=== PATIENT | male | born 1970 | race American Indian/Alaskan Native ===

== ENCOUNTER 2019-05-05 20:01 | Inpatient (IN) | payer MEDICARE ==
[2019-05-05] MEDS ORDERED: SODIUM CHLORIDE 0.9% 1000 ML 1,000 ML IV ONE (20:36)
[2019-05-05] MEDS ORDERED: NALOXONE 2 MG/2 ML INJ IV ONE (20:37)
--- NOTE | 2019-05-05 20:41 | Emergency Department Report ---
ED Altered Mental Status HPI - General Chief Complaint: Altered Mental Status Stated Complaint: AMS Time Seen by Provider: 05/05/19 20:33 Source: family Mode of arrival: Ambulatory Limitations: Altered Mental Status - History of Present Illness Initial Comments: Patient is a 48-year-old male who presents emergency room with complaints of altered mental status and decreased responsiveness. Patient brought in by by his girlfriend. Girlfriend states he's been like this for 2 days. girlfriend states the patient has not been waking up. girlfriend states patient has a history of drug use. MD Complaint: altered mental status, confusion, decreased responsiveness -: Sudden Severity: severe Context: drug abuse, other - Related Data Previous Rx's Medication Instructions Recorded Last Taken Type risperiDONE [RisperDAL] 0.5 mg PO BID #60 tablet 05/09/19 Unknown Rx Allergies Allergy/AdvReac Type Severity Reaction Status Date / Time No Known Allergies Allergy Verified 03/04/18 03:58 ED Review of Systems ROS: Stated complaint: AMS Other details as noted in HPI Nonobvious in room 15 Comment: Unobtainable due to pts medical conditions ED Past Medical Hx - Past Medical History Previous Medical History?: Yes Hx Hypertension: Yes Hx Psychiatric Treatment: Yes - Surgical History Past Surgical History?: No - Family History Family history: no significant - Social History Smoking Status: Current Every Day Smoker Substance Use Type: Alcohol, Cocaine, Marijuana, Prescribed, Methamphetamines - Medications Home Medications: Home Medications Medication Instructions Recorded Confirmed Last Taken Type risperiDONE [RisperDAL] 0.5 mg PO BID #60 tablet 05/09/19 Unknown Rx ED Physical Exam - General Limitations: Altered Mental Status General appearance: obtunded - Head Head exam: Present: atraumatic, normocephalic - Eye Eye exam: Present: normal appearance, PERRL Pupils: Present: normal accommodation - ENT ENT exam: Present: mucous membranes dry - Neck Neck exam: Present: normal inspection - Respiratory Respiratory exam: Present: normal lung sounds bilaterally. Absent: respiratory distress, wheezes, rales - Cardiovascular Cardiovascular Exam: Present: regular rate, normal rhythm. Absent: systolic murmur, diastolic murmur, rubs, gallop - GI/Abdominal GI/Abdominal exam: Present: soft, normal bowel sounds. Absent: distended, tenderness, guarding - Rectal Rectal exam: Present: deferred - Extremities Exam Extremities exam: Present: normal inspection - Back Exam Back exam: Present: normal inspection - Neurological Exam Neurological exam: Present: altered - Expanded Neurological Exam Expanded Best Eye Response ([place]): (2) open to pain Best Motor Response ([place]): (5) localizes to pain Best Verbal Response ([place]): (2) incomprehsible sounds [place] Total: 9 - Skin Skin exam: Present: warm, dry, intact, normal color. Absent: rash - Assessment Assessment Interval: Baseline - Level of Consciousness 1a. Level of Consciousness: resp stimuli/obtunded - LOC Questions 1b. LOC Questions: answers no questions correctly - LOC Command 1c. LOC Commands: performs no tasks correctly - Best Gaze 2. Best Gaze: normal - Visual 3. Visual: no visual loss - Facial Palsy 4. Facial Palsy: normal symmetrical movement - Motor Arm 5a. Motor Arm Left: some gravity effort 5b. Motor Arm Right: some gravity effort - Motor Leg 6a. Motor Leg Left: some gravity effort 6b. Motor Leg Right: some gravity effort - Limb Ataxia 7. Limb Ataxia: absent - Sensory 8. Sensory: normal - Best Language 9. Best Language: coma/unresponsive - Dysarthria 10. Dysarthria: intubated or other barrier - Extinction and Inattention 11. Extinction/Inattention: no abnormality - Scoring Total Score: 17 Stroke Severity: Moderate to Severe Stroke ED Course Vital Signs 05/05/19 05/05/19 05/05/19 20:04 20:30 20:45 Temperature 98 F Pulse Rate 104 H 94 H 109 H Respiratory 18 17 18 Rate Blood Pressure 134/80 114/79 Blood Pressure 132/87 [Left] O2 Sat by Pulse 92 98 99 Oximetry 05/05/19 05/05/19 05/05/19 21:00 21:30 22:00 Temperature Pulse Rate 86 86 93 H Respiratory 19 15 18 Rate Blood Pressure 121/79 133/74 119/76 Blood Pressure [Left] O2 Sat by Pulse 96 94 92 Oximetry 05/05/19 05/05/19 05/05/19 22:17 22:30 23:00 Temperature Pulse Rate 93 H 82 88 Respiratory 12 14 14 Rate Blood Pressure 145/86 145/80 119/65 Blood Pressure [Left] O2 Sat by Pulse 93 95 95 Oximetry 05/05/19 05/06/19 05/06/19 23:30 00:00 01:00 Temperature Pulse Rate 107 H 82 82 Respiratory 11 L 17 14 Rate Blood Pressure 107/74 118/66 110/62 Blood Pressure [Left] O2 Sat by Pulse 94 97 94 Oximetry 05/06/19 05/06/19 05/06/19 01:30 02:00 02:30 Temperature Pulse Rate 72 72 62 Respiratory 15 14 15 Rate Blood Pressure 101/59 109/64 111/76 Blood Pressure [Left] O2 Sat by Pulse 95 100 93 Oximetry 05/06/19 05/06/19 05/06/19 03:00 03:30 04:00 Temperature Pulse Rate 87 66 71 Respiratory 15 13 13 Rate Blood Pressure 109/70 119/71 102/60 Blood Pressure [Left] O2 Sat by Pulse 96 95 93 Oximetry 05/06/19 05/06/19 05/06/19 04:30 05:00 05:30 Temperature Pulse Rate 82 84 88 Respiratory 15 15 11 L Rate Blood Pressure 127/87 134/77 125/75 Blood Pressure [Left] O2 Sat by Pulse 98 96 97 Oximetry 05/06/19 05/06/19 05/06/19 06:00 06:30 07:00 Temperature Pulse Rate 72 70 67 Respiratory 13 14 16 Rate Blood Pressure 116/63 118/60 123/79 Blood Pressure [Left] O2 Sat by Pulse 93 100 97 Oximetry 05/06/19 05/06/19 05/06/19 08:00 08:28 09:00 Temperature Pulse Rate 81 61 106 H Respiratory 12 16 17 Rate Blood Pressure 123/62 123/62 Blood Pressure 125/63 [Left] O2 Sat by Pulse 95 95 96 Oximetry 05/06/19 05/06/19 05/06/19 10:00 11:00 11:56 Temperature Pulse Rate 63 98 H 93 H Respiratory 16 15 16 Rate Blood Pressure 107/64 125/70 Blood Pressure 138/81 [Left] O2 Sat by Pulse 97 92 99 Oximetry 05/06/19 05/06/19 05/06/19 13:36 14:49 15:29 Temperature 99.7 F H Pulse Rate 82 75 Respiratory 16 18 Rate Blood Pressure Blood Pressure 184/76 166/84 144/87 [Left] O2 Sat by Pulse 97 98 Oximetry 05/06/19 05/06/19 05/06/19 18:58 19:30 23:30 Temperature Pulse Rate 64 70 74 Respiratory 16 15 13 Rate Blood Pressure Blood Pressure 133/60 148/79 140/91 [Left] O2 Sat by Pulse 98 97 97 Oximetry 05/07/19 05/07/19 05/08/19 03:46 14:05 01:53 Temperature 99.0 F 99.2 F Pulse Rate 59 L 77 80 Respiratory 16 18 16 Rate Blood Pressure Blood Pressure 152/84 127/82 136/85 [Left] O2 Sat by Pulse 96 98 95 Oximetry 05/08/19 05/08/19 05/08/19 02:00 07:00 20:15 Temperature 98.1 F 98.0 F Pulse Rate 106 H 89 Respiratory 22 22 18 Rate Blood Pressure Blood Pressure 124/86 130/70 [Left] O2 Sat by Pulse 95 95 96 Oximetry 05/09/19 05/09/19 05/09/19 01:42 07:59 14:46 Temperature 97.4 F L 98.9 F 98.3 F Pulse Rate 93 H 89 92 H Respiratory 18 18 18 Rate Blood Pressure Blood Pressure 114/73 132/76 150/95 [Left] O2 Sat by Pulse 95 98 98 Oximetry 05/09/19 05/10/19 05/10/19 20:37 01:45 07:56 Temperature 98.6 F 98.6 F 98.0 F Pulse Rate 82 77 83 Respiratory 20 20 20 Rate Blood Pressure Blood Pressure 146/87 118/70 109/71 [Left] O2 Sat by Pulse 95 99 96 Oximetry 05/10/19 05/10/19 14:43 21:01 Temperature 98.5 F 97.7 F Pulse Rate 91 H 74 Respiratory 18 18 Rate Blood Pressure Blood Pressure 117/75 137/89 [Left] O2 Sat by Pulse 94 96 Oximetry - Reevaluation(s) Reevaluation #1: Patient is not answering questions but Patient is more awake. 05/05/19 20:47 Reevaluation #2: Patient is acutely agitated. Patient unable to be still for CT scan. Patient continues to get out of bed and move. Patient will be given Geodon so that we can probably evaluate the patient. 05/05/19 21:26 Reevaluation #3: Patient is still sleeping. 05/06/19 01:14 Reevaluation #4: Patient is still resting in room. Since the patient is unable to explain the intentions of his overdose, the patient was placed on ER hold and have a mental health evaluation. Patient is medically cleared with the final disposition will come from psych. 05/06/19 03:03 Reevaluation #5: The nurse asked me to look at the patient. Patient is still in the ER from May 05. Patient was signed out to oncoming physician and wasn't ER hold for psych evaluation. Psych has cleared the patient from a psychiatric standpoint and patient is waiting on medical clearance. I examined the patient the patient is minimally responsive. Patient does not respond to pain. Patient does not open his eyes. Patient does not follow commands. I will do a head CT and some basic labs. 05/10/19 19:26 Patient's labs done and did not show any abnormalities. Patient given IV fluids since patient has not taken any food in. I will reconsult mental health. 05/10/19 22:58 Due to the patient's decreased responsiveness, the patient will be admitted to the hospitalist service. Patient's labs were repeated. 05/11/19 03:05 - Consultations Consultation #1: Hospitalist was consulted for admission. Hospitalist admit patient. 05/11/19 03:05 - Lab Data Result diagrams: 05/10/19 19:22 05/10/19 19:22 Lab Results 05/05/19 05/05/19 05/05/19 Range/Units 20:52 20:52 20:52 WBC 14.9 H (4.5-11.0) K/mm3 RBC 5.82 H (3.65-5.03) M/mm3 Hgb 18.2 H (11.8-15.2) gm/dl Hct 53.3 H (35.5-45.6) % MCV 92 (84-94) fl MCH 31 (28-32) pg MCHC 34 (32-34) % RDW 14.5 (13.2-15.2) % Plt Count 415 (140-440) K/mm3 Lymph % (Auto) 29.6 (13.4-35.0) % [place] % (Auto) 8.3 H (0.0-7.3) % Eos % (Auto) 1.3 (0.0-4.3) % Baso % (Auto) 1.3 (0.0-1.8) % Lymph # 4.4 (1.2-5.4) K/mm3 [place] # 1.2 H (0.0-0.8) K/mm3 Eos # 0.2 (0.0-0.4) K/mm3 Baso # 0.2 H (0.0-0.1) K/mm3 Seg Neutrophils % 59.5 (40.0-70.0) % Seg Neutrophils # 8.9 H (1.8-7.7) K/mm3 VBG pH (7.320-7.420) Sodium 139 (137-145) mmol/L Potassium 3.9 (3.6-5.0) mmol/L Chloride 99.8 (98-107) mmol/L Carbon Dioxide 23 (22-30) mmol/L Anion Gap 20 mmol/L BUN 20 (9-20) mg/dL Creatinine 0.9 (0.8-1.5) mg/dL Estimated GFR > 60 ml/min BUN/Creatinine Ratio 22 % Glucose 88 (75-100) mg/dL Lactic Acid 1.90 (0.7-2.0) mmol/L Calcium 10.1 (8.4-10.2) mg/dL Total Bilirubin 0.60 (0.1-1.2) mg/dL AST 20 (5-40) units/L ALT 18 (7-56) units/L Alkaline Phosphatase 135 H (35-129) units/L Ammonia (25-60) umol/L Total Creatine Kinase 38 L (55-170) units/L Total Protein 8.3 H (6.3-8.2) g/dL Albumin 4.3 (3.9-5) g/dL Albumin/Globulin Ratio 1.1 % Urine Color (Yellow) Urine Turbidity (Clear) Urine pH (5.0-7.0) Ur Specific [place] (1.003-1.030) Urine Protein (Negative) mg/dL Urine Glucose (UA) (Negative) mg/dL Urine Ketones (Negative) mg/dL Urine Blood (Negative) Urine Nitrite (Negative) Urine Bilirubin (Negative) Urine Urobilinogen (<2.0) mg/dL Ur Leukocyte Esterase (Negative) Urine WBC (Auto) (0.0-6.0) /HPF Urine RBC (Auto) (0.0-6.0) /HPF U Epithel Cells (Auto) (0-13.0) /HPF Urine Mucus /HPF Salicylates (2.8-20.0) mg/dL Urine Opiates Screen Urine Methadone Screen Acetaminophen (10.0-30.0) ug/mL Ur Barbiturates Screen Ur Phencyclidine Scrn Ur Amphetamines Screen U Benzodiazepines Scrn Urine Cocaine Screen U Marijuana (THC) Screen Drugs of Abuse Note Plasma/Serum Alcohol (0-0.07) % 05/05/19 05/05/19 05/05/19 Range/Units 20:52 20:52 20:52 WBC (4.5-11.0) K/mm3 RBC (3.65-5.03) M/mm3 Hgb (11.8-15.2) gm/dl Hct (35.5-45.6) % MCV (84-94) fl MCH (28-32) pg MCHC (32-34) % RDW (13.2-15.2) % Plt Count (140-440) K/mm3 Lymph % (Auto) (13.4-35.0) % [place] % (Auto) (0.0-7.3) % Eos % (Auto) (0.0-4.3) % Baso % (Auto) (0.0-1.8) % Lymph # (1.2-5.4) K/mm3 [place] # (0.0-0.8) K/mm3 Eos # (0.0-0.4) K/mm3 Baso # (0.0-0.1) K/mm3 Seg Neutrophils % (40.0-70.0) % Seg Neutrophils # (1.8-7.7) K/mm3 VBG pH (7.320-7.420) Sodium (137-145) mmol/L Potassium (3.6-5.0) mmol/L Chloride (98-107) mmol/L Carbon Dioxide (22-30) mmol/L Anion Gap mmol/L BUN (9-20) mg/dL Creatinine (0.8-1.5) mg/dL Estimated GFR ml/min BUN/Creatinine Ratio % Glucose (75-100) mg/dL Lactic Acid (0.7-2.0) mmol/L Calcium (8.4-10.2) mg/dL Total Bilirubin (0.1-1.2) mg/dL AST (5-40) units/L ALT (7-56) units/L Alkaline Phosphatase (35-129) units/L Ammonia 59.0 (25-60) umol/L Total Creatine Kinase (55-170) units/L Total Protein (6.3-8.2) g/dL Albumin (3.9-5) g/dL Albumin/Globulin Ratio % Urine Color (Yellow) Urine Turbidity (Clear) Urine pH (5.0-7.0) Ur Specific [place] (1.003-1.030) Urine Protein (Negative) mg/dL Urine Glucose (UA) (Negative) mg/dL Urine Ketones (Negative) mg/dL Urine Blood (Negative) Urine Nitrite (Negative) Urine Bilirubin (Negative) Urine Urobilinogen (<2.0) mg/dL Ur Leukocyte Esterase (Negative) Urine WBC (Auto) (0.0-6.0) /HPF Urine RBC (Auto) (0.0-6.0) /HPF U Epithel Cells (Auto) (0-13.0) /HPF Urine Mucus /HPF Salicylates < 0.3 L (2.8-20.0) mg/dL Urine Opiates Screen Urine Methadone Screen Acetaminophen < 5.0 L (10.0-30.0) ug/mL Ur Barbiturates Screen Ur Phencyclidine Scrn Ur Amphetamines Screen U Benzodiazepines Scrn Urine Cocaine Screen U Marijuana (THC) Screen Drugs of Abuse Note Plasma/Serum Alcohol (0-0.07) % 05/05/19 05/05/19 05/05/19 Range/Units 20:52 23:49 23:49 WBC (4.5-11.0) K/mm3 RBC (3.65-5.03) M/mm3 Hgb (11.8-15.2) gm/dl Hct (35.5-45.6) % MCV (84-94) fl MCH (28-32) pg MCHC (32-34) % RDW (13.2-15.2) % Plt Count (140-440) K/mm3 Lymph % (Auto) (13.4-35.0) % [place] % (Auto) (0.0-7.3) % Eos % (Auto) (0.0-4.3) % Baso % (Auto) (0.0-1.8) % Lymph # (1.2-5.4) K/mm3 [place] # (0.0-0.8) K/mm3 Eos # (0.0-0.4) K/mm3 Baso # (0.0-0.1) K/mm3 Seg Neutrophils % (40.0-70.0) % Seg Neutrophils # (1.8-7.7) K/mm3 VBG pH (7.320-7.420) Sodium (137-145) mmol/L Potassium (3.6-5.0) mmol/L Chloride (98-107) mmol/L Carbon Dioxide (22-30) mmol/L Anion Gap mmol/L BUN (9-20) mg/dL Creatinine (0.8-1.5) mg/dL Estimated GFR ml/min BUN/Creatinine Ratio % Glucose (75-100) mg/dL Lactic Acid (0.7-2.0) mmol/L Calcium (8.4-10.2) mg/dL Total Bilirubin (0.1-1.2) mg/dL AST (5-40) units/L ALT (7-56) units/L Alkaline Phosphatase (35-129) units/L Ammonia (25-60) umol/L Total Creatine Kinase (55-170) units/L Total Protein (6.3-8.2) g/dL Albumin (3.9-5) g/dL Albumin/Globulin Ratio % Urine Color [place] (Yellow) Urine Turbidity Clear (Clear) Urine pH 6.0 (5.0-7.0) Ur Specific [place] 1.029 (1.003-1.030) Urine Protein 30 mg/dl (Negative) mg/dL Urine Glucose (UA) Neg (Negative) mg/dL Urine Ketones 80 (Negative) mg/dL Urine Blood Neg (Negative) Urine Nitrite Neg (Negative) Urine Bilirubin Neg (Negative) Urine Urobilinogen 4.0 (<2.0) mg/dL Ur Leukocyte Esterase Neg (Negative) Urine WBC (Auto) 2.0 (0.0-6.0) /HPF Urine RBC (Auto) 3.0 (0.0-6.0) /HPF U Epithel Cells (Auto) 1.0 (0-13.0) /HPF Urine Mucus 3+ /HPF Salicylates (2.8-20.0) mg/dL Urine Opiates Screen Presumptive negative Urine Methadone Screen Presumptive negative Acetaminophen (10.0-30.0) ug/mL Ur Barbiturates Screen Presumptive negative Ur Phencyclidine Scrn Presumptive negative Ur Amphetamines Screen Presumptive positive U Benzodiazepines Scrn Presumptive negative Urine Cocaine Screen Presumptive negative U Marijuana (THC) Screen Presumptive positive Drugs of Abuse Note Disclamer Plasma/Serum Alcohol < 0.01 (0-0.07) % 05/09/19 05/10/19 05/10/19 Range/Units 20:04 19:22 19:22 WBC 13.1 H (4.5-11.0) K/mm3 RBC 5.65 H (3.65-5.03) M/mm3 Hgb 18.4 H (11.8-15.2) gm/dl Hct 51.0 H (35.5-45.6) % MCV 90 (84-94) fl MCH 33 H (28-32) pg MCHC 36 H (32-34) % RDW 14.1 (13.2-15.2) % Plt Count 347 (140-440) K/mm3 Lymph % (Auto) 20.3 (13.4-35.0) % [place] % (Auto) 10.1 H (0.0-7.3) % Eos % (Auto) 0.9 (0.0-4.3) % Baso % (Auto) 0.8 (0.0-1.8) % Lymph # 2.7 (1.2-5.4) K/mm3 [place] # 1.3 H (0.0-0.8) K/mm3 Eos # 0.1 (0.0-0.4) K/mm3 Baso # 0.1 (0.0-0.1) K/mm3 Seg Neutrophils % 67.9 (40.0-70.0) % Seg Neutrophils # 8.9 H (1.8-7.7) K/mm3 VBG pH (7.320-7.420) Sodium 139 140 (137-145) mmol/L Potassium 4.0 4.0 (3.6-5.0) mmol/L Chloride 100.4 100.2 (98-107) mmol/L Carbon Dioxide 18 L 16 L (22-30) mmol/L Anion Gap 25 28 mmol/L BUN 18 19 (9-20) mg/dL Creatinine 0.7 L 0.7 L (0.8-1.5) mg/dL Estimated GFR > 60 > 60 ml/min BUN/Creatinine Ratio 26 27 % Glucose 79 87 (75-100) mg/dL Lactic Acid (0.7-2.0) mmol/L Calcium 9.8 10.1 (8.4-10.2) mg/dL Total Bilirubin 0.40 0.40 (0.1-1.2) mg/dL AST 15 15 (5-40) units/L ALT 12 13 (7-56) units/L Alkaline Phosphatase 123 128 (35-129) units/L Ammonia (25-60) umol/L Total Creatine Kinase 36 L (55-170) units/L Total Protein 8.0 8.1 (6.3-8.2) g/dL Albumin 4.0 4.1 (3.9-5) g/dL Albumin/Globulin Ratio 1.0 1.0 % Urine Color (Yellow) Urine Turbidity (Clear) Urine pH (5.0-7.0) Ur Specific [place] (1.003-1.030) Urine Protein (Negative) mg/dL Urine Glucose (UA) (Negative) mg/dL Urine Ketones (Negative) mg/dL Urine Blood (Negative) Urine Nitrite (Negative) Urine Bilirubin (Negative) Urine Urobilinogen (<2.0) mg/dL Ur Leukocyte Esterase (Negative) Urine WBC (Auto) (0.0-6.0) /HPF Urine RBC (Auto) (0.0-6.0) /HPF U Epithel Cells (Auto) (0-13.0) /HPF Urine Mucus /HPF Salicylates (2.8-20.0) mg/dL Urine Opiates Screen Urine Methadone Screen Acetaminophen (10.0-30.0) ug/mL Ur Barbiturates Screen Ur Phencyclidine Scrn Ur Amphetamines Screen U Benzodiazepines Scrn Urine Cocaine Screen U Marijuana (THC) Screen Drugs of Abuse Note Plasma/Serum Alcohol (0-0.07) % 05/10/19 05/11/19 Range/Units 21:51 02:23 WBC (4.5-11.0) K/mm3 RBC (3.65-5.03) M/mm3 Hgb (11.8-15.2) gm/dl Hct (35.5-45.6) % MCV (84-94) fl MCH (28-32) pg MCHC (32-34) % RDW (13.2-15.2) % Plt Count (140-440) K/mm3 Lymph % (Auto) (13.4-35.0) % [place] % (Auto) (0.0-7.3) % Eos % (Auto) (0.0-4.3) % Baso % (Auto) (0.0-1.8) % Lymph # (1.2-5.4) K/mm3 [place] # (0.0-0.8) K/mm3 Eos # (0.0-0.4) K/mm3 Baso # (0.0-0.1) K/mm3 Seg Neutrophils % (40.0-70.0) % Seg Neutrophils # (1.8-7.7) K/mm3 VBG pH 7.372 (7.320-7.420) Sodium (137-145) mmol/L Potassium (3.6-5.0) mmol/L Chloride (98-107) mmol/L Carbon Dioxide (22-30) mmol/L Anion Gap mmol/L BUN (9-20) mg/dL Creatinine (0.8-1.5) mg/dL Estimated GFR ml/min BUN/Creatinine Ratio % Glucose (75-100) mg/dL Lactic Acid (0.7-2.0) mmol/L Calcium (8.4-10.2) mg/dL Total Bilirubin (0.1-1.2) mg/dL AST (5-40) units/L ALT (7-56) units/L Alkaline Phosphatase (35-129) units/L Ammonia 44.0 (25-60) umol/L Total Creatine Kinase (55-170) units/L Total Protein (6.3-8.2) g/dL Albumin (3.9-5) g/dL Albumin/Globulin Ratio % Urine Color (Yellow) Urine Turbidity (Clear) Urine pH (5.0-7.0) Ur Specific [place] (1.003-1.030) Urine Protein (Negative) mg/dL Urine Glucose (UA) (Negative) mg/dL Urine Ketones (Negative) mg/dL Urine Blood (Negative) Urine Nitrite (Negative) Urine Bilirubin (Negative) Urine Urobilinogen (<2.0) mg/dL Ur Leukocyte Esterase (Negative) Urine WBC (Auto) (0.0-6.0) /HPF Urine RBC (Auto) (0.0-6.0) /HPF U Epithel Cells (Auto) (0-13.0) /HPF Urine Mucus /HPF Salicylates (2.8-20.0) mg/dL Urine Opiates Screen Urine Methadone Screen Acetaminophen (10.0-30.0) ug/mL Ur Barbiturates Screen Ur Phencyclidine Scrn Ur Amphetamines Screen U Benzodiazepines Scrn Urine Cocaine Screen U Marijuana (THC) Screen Drugs of Abuse Note Plasma/Serum Alcohol (0-0.07) % - EKG Data -: EKG Interpreted by [facility] EKG shows normal: sinus rhythm, axis, intervals, QRS complexes, ST-T waves Rate: normal - Radiology Data Radiology results: report reviewed CHEST 1 VIEW 05/05/2019 9:04 PM INDICATION / CLINICAL INFORMATION: Altered Mental Status. COMPARISON: Chest x-ray 03/04/2018 FINDINGS: SUPPORT DEVICES: None. HEART / MEDIASTINUM: Upper limits normal in size for AP technique. LUNGS / PLEURA: No significant pulmonary or pleural abnormality. No pneumothorax. ADDITIONAL FINDINGS: Multiple old healed left rib fractures and left mid clavicular fracture. Moderate degenerative changes left shoulder, unchanged. IMPRESSION: 1. No acute findings. CT HEAD WITHOUT CONTRAST INDICATION: Altered Mental Status TECHNIQUE: Axial slices were obtained through the head. Coronal and sagittal reformatted images were obtained. COMPARISON: CT scan dated 03/05/2018 FINDINGS: There is no intracranial hemorrhage or extra-axial fluid collection. Ventricles, basilar cisterns, and sulci appear within normal limits for age. There is no mass lesion or midline shift. No acute territorial infarct is identified. Embolization coils are again noted on the right. There is increased density in the intracranial vessels diffusely. This is not specific but could indicate dehydration. Bone windows demonstrate no acute osseous abnormality. There is mucosal thickening in the left aspect of the frontal sinus and in several ethmoid air cells. TECHNIQUE: All CT scans at this facility use dose modulation, iterative reconstruction, automated exposure control, weight based dosing, when appropriate, to reduce radiation dose to as low as reasonably achievable. IMPRESSION: 1. No acute intracranial abnormality. - Medical Decision Making Patient is a 48-year-old male that presents to the emergency room with possible overdose and altered mental status. Patient became agitated while in the ER and order to fully evaluate patient patient needs to be given Geodon. Patient improved with Geodon. Patient had a head CT was negative for acute findings. Patient had a chest x-ray was negative for acute findings. Patient's labs unremarkable except for UDS positive for amphetamines and marijuana. Patient is medically cleared however the final disposition will come from our psych team. Patient placed on an ER hold.. - Differential Diagnosis overdose, altered mental status, dehydration. Critical Care Time: Yes Critical care time in (mins) excluding proc time.: 80 Critical care attestation.: If time is entered above; I have spent that time in minutes in the direct care of this critically ill patient, excluding procedure time. Critical Care Time: 80 MINUTES ED Disposition Clinical Impression: Drug abuse, Unresponsive episode, Acidosis, Dehydration Altered mental state Qualifiers: Altered mental status type: unspecified Qualified Code(s): R41.82 - Altered mental status, unspecified Overdose Qualifiers: Encounter type: initial encounter Injury intent: accidental or unintentional Qualified Code(s): T50.901A - Poisoning by unspecified drugs, medicaments and biological substances, accidental (unintentional), initial encounter Disposition: DC-09 OP ADMIT IP TO THIS HOSP Is pt being admited?: Yes Does the pt Need Aspirin: No Condition: Critical Prescriptions: risperiDONE [RisperDAL] 0.5 mg PO BID #60 tablet Time of Disposition: 02:01
[2019-05-05] MEDS ORDERED: ONDANSETRON 4 MG/2 ML INJ IV ONE (20:49)
[2019-05-05 21:03] LABS: Basophils # (Auto) 0.2 K/mm3 (0.0-0.1); Basophils % (Auto) 1.3 % (0.0-1.8); Eosinophils # (Auto) 0.2 K/mm3 (0.0-0.4); Eosinophils % (Auto) 1.3 % (0.0-4.3); Hematocrit 53.3 % (35.5-45.6); Hemoglobin 18.2 gm/dl (11.8-15.2); Lymphocytes # (Auto) 4.4 K/mm3 (1.2-5.4); Lymphocytes % (Auto) 29.6 % (13.4-35.0); Mean Corpuscular HGB Conc 34 % (32-34); Mean Corpuscular Volume 92 fl (84-94); Monocytes # (Auto) 1.2 K/mm3 (0.0-0.8); Monocytes % (Auto) 8.3 % (0.0-7.3); Platelet Count 415 K/mm3 (140-440); Red Blood Count 5.82 M/mm3 (3.65-5.03); Red Cell Distribution Width 14.5 % (13.2-15.2)
[2019-05-05] MEDS ORDERED: ZIPRASIDONE MESYLATE 20 MG VIAL IM ONE (21:11)
[2019-05-05] MEDS ORDERED: WATER FOR INJ Sterile (PF) 10 ML IM STA (21:16)
[2019-05-05] MEDS ORDERED: WATER FOR INJ Sterile (PF) 10 ML ONE (21:16)
[2019-05-05 21:18] LABS: Alanine Aminotransferase 18 units/L (7-56); Albumin 4.3 g/dL (3.9-5); BUN/Creatinine Ratio 22; Blood Urea Nitrogen 20 mg/dL (9-20); Calcium 10.1 mg/dL (8.4-10.2); Hemolysis Index 2
--- NOTE | 2019-05-05 21:49 | XRay Report ---
CHEST 1 VIEW 05/05/2019 9:04 PM INDICATION / CLINICAL INFORMATION: Altered Mental Status. COMPARISON: Chest x-ray 03/04/2018 FINDINGS: SUPPORT DEVICES: None. HEART / MEDIASTINUM: Upper limits normal in size for AP technique. LUNGS / PLEURA: No significant pulmonary or pleural abnormality. No pneumothorax. ADDITIONAL FINDINGS: Multiple old healed left rib fractures and left mid clavicular fracture. Moderat e degenerative changes left shoulder, unchanged. IMPRESSION: 1. No acute findings. Signer Name: Rah Rico MD Signed: 05/05/2019 9:44 PM Workstation Name: [id number]
--- NOTE | 2019-05-05 23:06 | Cat Scan Report ---
CT HEAD WITHOUT CONTRAST INDICATION: Altered Mental Status TECHNIQUE: Axial slices were obtained through the head. Coronal and sagittal reformatted images were obtained. COMPARISON: CT scan dated 03/05/2018 FINDINGS: There is no intracranial hemorrhage or extra-axial fluid collection. Ventricles, basilar cisterns, an d sulci appear within normal limits for age. There is no mass lesion or midline shift. No acute justin torial infarct is identified. Embolization coils are again noted on the right. There is increased density in the intracranial vessels diffusely. This is not specific but could [place] rl dehydration. Bone windows demonstrate no acute osseous abnormality. There is mucosal thickening in the left aspect of the frontal sinus and in several ethmoid air cells. TECHNIQUE: All CT scans at this facility use dose modulation, iterative reconstruction, automated ex posure control, weight based dosing, when appropriate, to reduce radiation dose to as low as reasonab ly achievable. IMPRESSION: 1. No acute intracranial abnormality. Signer Name: Abilio Huang MD Signed: 05/05/2019 11:02 PM Workstation Name: [id number]
[2019-05-06 00:10] LABS: Benzodiazepines Screen,Urine PRESUMPTIVE NEGATIVE; Bilirubin,Urine NEG (Negative); Blood,Urine NEG (Negative); Cocaine Screen,Urine PRESUMPTIVE NEGATIVE; Color,Urine Amber (Yellow); Methadone Screen,Urine PRESUMPTIVE NEGATIVE; Mucus,Urine 3+ /HPF; Opiate Screen,Urine PRESUMPTIVE NEGATIVE
[2019-05-06 00:37] LABS: Amphetamine Screen,Urine PRESUMPTIVE POSITIVE; Cannabinoid Screen,Urine PRESUMPTIVE POSITIVE
[2019-05-06] MEDS ORDERED: SODIUM CHLORIDE 0.9% 1000 ML 1,000 ML IV ONE (01:20)
--- NOTE | 2019-05-07 14:24 | Consultation ---
History of Present Illness - Reason for Consult Consult date: 05/07/19 Reason for consult: assess and manage mental health - Chief Complaint Chief complaint: unable to assess. pt refused to speak - History of Present Psychiatric Illness Terrell Marshall is a 48 year old male patient who was brought to the ER for AMS by girlfriend according to the medical record. The patient is lying in bed. Dressed appropriately. Appears asleep. His eyebrows raise as I enter the room and call his name. He does not open his eyes or respond to vigorous tactile stimuli. Spoke with the nurse caring for the patient, she says the patient has done this since he's been here, and that his girlfriend says he ignores people purposely. Re-entered the room to try and engage the person in an interview. Assessed radial pulse, 3+ palpated. The pateint never opened his eyes and turned his head toward the wall. PAST PSYCHIATRIC HISTORY: Unable to assess PAST MEDICAL HISTORY: Unable to assess Family Psychiatric History Unable to assess SOCIAL HISTORY Unable to assess REVIEW OF SYSTEMS Unable to assess MSE Appearance: Asleep. Dressed appropriately. Unable to assess rest of MSE Assessment: Altered Mental Status Drug Induced Mood Disorder Plan Risperidone 0.5mg po BID Geodon 10mg IM q4h agitation Medical: Per primary Disposition: The patient meets the requirement for acute inpatient psychiatric treatment at this time. Transfer to an acute psychiatric facility once medically cleared. Will reassess the patient's status tomorrow once he is able or willing to speak, will reconsider disposition at that time. Will continue to follow until transferred. Please call with any questions or concerns. Thank you for this consult. Medications and Allergies Allergies Allergy/AdvReac Type Severity Reaction Status Date / Time No Known Allergies Allergy Verified 03/04/18 03:58 Mental Status Exam - Vital signs Last Vital Signs Temp 99.0 F 05/07/19 14:05 Pulse 77 05/07/19 14:05 Resp 18 05/07/19 14:05 BP 127/82 05/07/19 14:05 Pulse Ox 98 05/07/19 14:05 Results Result Diagrams: 05/05/19 20:52 05/05/19 20:52 All other labs normal.
[2019-05-07] MEDS ORDERED: ZIPRASIDONE MESYLATE 20 MG VIAL IM PRN (14:38)
[2019-05-07] MEDS: risperiDONE 0.25 MG TAB PO SCH (16:26)
[2019-05-08] MEDS: risperiDONE 0.25 MG TAB PO SCH ×3 (01:50→22:12)
--- NOTE | 2019-05-08 11:03 | Progress Note ---
Subjective - Reason for Consult Consult date: 05/08/19 Reason for consult: altered mental status - Chief Complaint Chief complaint: Reviewed the patient's medical record and discussed with the nursing staff the patient's progress. The nurse note states the patient is resting and will not respond to staff verbally. Vitals stable and no distress noted. Reports rcvd patient is not a 1013 and was unable to assess him today. Family reported to nurse patient does this sometimes and just will not speak to them. Nurse notes also says patient repositions himself on stretcher but will not open his eyes. I attempted to interview the patient today, he is disrobed, wearing a diaper only. He is asleep on his stomach with his head turned toward the wall. The patient hand moves as I'm entering the room. Upon calling the patient's name, his eyes flinched. He did not speak or acknowledge my present. MSE Unable to assess rest of MSE Assessment: Altered Mental Status Drug Induced Mood Disorder Plan Lorazepam 2mg IM x 1 to see if patient responds Medical: Per primary Disposition: The patient meets the requirement for acute inpatient psychiatric treatment at this time. Transfer to an acute psychiatric facility once medically cleared. Will do the Lorazepam challenge to assist in ruling out catatonia. If not transferred, will reassess disposition tomorrow. Please call with any questions or concerns. Thank you for this consult. Mental Status Exam - Vital signs Last Vital Signs Temp 98.1 F 05/08/19 07:00 Pulse 106 H 05/08/19 07:00 Resp 22 05/08/19 07:00 BP 124/86 05/08/19 07:00 Pulse Ox 95 05/08/19 07:00
[2019-05-08] MEDS ORDERED: LORazepam 2 MG/ML VIAL IM ONE (11:27)
[2019-05-08] MEDS ORDERED: SODIUM CHLORIDE 0.9% 1000 ML 1,000 ML IV ONE (12:02)
[2019-05-09] MEDS: risperiDONE 0.25 MG TAB PO SCH ×2 (10:49→22:25)
--- NOTE | 2019-05-09 11:26 | Progress Note ---
Subjective - Reason for Consult Consult date: 05/09/19 Reason for consult: Altered mental status - Chief Complaint Chief complaint: Reviewed the patient's medical record and discussed with the nursing staff the patient's progress. The nurse caring for the patient states the patient has not been participating in interaction during assessment. She says he doesn't respond to questioning or touch, but when she mentioned to him his girlfriend called, he blinked his eyes. She also says he has been moving around and repositioning himself when no-one is looking. I attempted to interview the patient today, he is disrobed, wearing a diaper only. He is asleep on his stomach. The patient does not respond to my voice or tactle stimulation. As I'm leaving the room, I look back and he moves his hand. The nurse led me to the monitor. I then observed the patient moving about on the stretcher, repositioning and straightening his linen over him. MSE Unable to assess rest of MSE Assessment: Altered Mental Status Drug Induced Mood Disorder Plan Discontinue 1013 No scripts given Medical: Per primary Disposition: The patient does not meet the requirement for acute inpatient psy chiatric treatment at this time. The patient can be discharged once medically cleared. Dr Alonzo informed and agrees with plan. The patient is to follow up with outpatient psych or primary care in 7 to 10 days. Will sign off. Thank you for this consult. Mental Status Exam - Vital signs Last Vital Signs Temp 98.9 F 05/09/19 07:59 Pulse 89 05/09/19 07:59 Resp 18 05/09/19 07:59 BP 132/76 05/09/19 07:59 Pulse Ox 98 05/09/19 07:59
[2019-05-09] MEDS ORDERED: AMMONIA INHALANT IH ONE ×2 (11:44→11:48)
[2019-05-09 20:47] LABS: Alanine Aminotransferase 12 units/L (7-56); BUN/Creatinine Ratio 26; Blood Urea Nitrogen 18 mg/dL (9-20); Calcium 9.8 mg/dL (8.4-10.2); Hemolysis Index 6
[2019-05-10] MEDS: risperiDONE 0.25 MG TAB PO SCH (14:39)
[2019-05-10 19:37] LABS: Basophils # (Auto) 0.1 K/mm3 (0.0-0.1); Basophils % (Auto) 0.8 % (0.0-1.8); Eosinophils # (Auto) 0.1 K/mm3 (0.0-0.4); Eosinophils % (Auto) 0.9 % (0.0-4.3); Hemoglobin 18.4 gm/dl (11.8-15.2); Lymphocytes # (Auto) 2.7 K/mm3 (1.2-5.4); Lymphocytes % (Auto) 20.3 % (13.4-35.0); Mean Corpuscular HGB Conc 36 % (32-34); Mean Corpuscular Volume 90 fl (84-94); Monocytes # (Auto) 1.3 K/mm3 (0.0-0.8); Monocytes % (Auto) 10.1 % (0.0-7.3); Platelet Count 347 K/mm3 (140-440); Red Blood Count 5.65 M/mm3 (3.65-5.03); Red Cell Distribution Width 14.1 % (13.2-15.2)
[2019-05-10 20:29] LABS: Alanine Aminotransferase 13 units/L (7-56); Albumin 4.1 g/dL (3.9-5); BUN/Creatinine Ratio 27; Blood Urea Nitrogen 19 mg/dL (9-20); Calcium 10.1 mg/dL (8.4-10.2); Hemolysis Index 16
--- NOTE | 2019-05-10 21:15 | Cat Scan Report ---
CT head/brain wo con INDICATION / CLINICAL INFORMATION: 48 years Male; ams, unresponsive. TECHNIQUE: Routine CT head without contrast. All CT scans at this location are performed using CT dos e reduction for ALARA by means of automated exposure control. COMPARISON: 03/05/2018 FINDINGS: BRAIN / INTRACRANIAL CONTENTS: Aneurysm coiling seen in the suprasellar cistern/cavernous sinus regio n on the right, resulting in significant streak artifact. Similar findings seen on prior. High attenuation seen in the vessels-would question if the patient has received contrast earlier toda y. High oxygenation level might also be a consideration. Otherwise, no acute hemorrhage, mass effect, midline shift, hydrocephalus, or acute, large territoria l infarct. No chronic infarct or atrophy appreciated. No significant white matter abnormality. CRANIOCERVICAL JUNCTION: No significant abnormality. ORBITS: No significant abnormality of visualized orbits. SINUSES / MASTOIDS: Mild to moderate opacification of the mastoid seen on the right. There is also mu cosal thickening in the right middle ear cavity. I do not see the middle ear ossicles on the right, a nd clinical correlation is recommended. ADDITIONAL FINDINGS: None. IMPRESSION: 1. No focal mass, hemorrhage, hydrocephalus, or acute, large territorial infarct. Signer Name: Tom Gold MD, III Signed: 05/10/2019 9:11 PM Workstation Name: [id number]
[2019-05-10] MEDS ORDERED: SODIUM CHLORIDE 0.9% 1000 ML 1,000 ML IV ONE (22:23)
[2019-05-10] MEDS ORDERED: LORazepam 2 MG/ML VIAL IV ONE (22:53)
[2019-05-11] MEDS: risperiDONE 0.25 MG TAB PO SCH (00:40)
[2019-05-11] MEDS ORDERED: SODIUM CHLORIDE 0.9% 1000 ML 1,000 ML IV ONE ×2 (01:23→01:24)
[2019-05-11] MEDS ORDERED: LORazepam 2 MG/ML VIAL ONE (02:49)
[2019-05-11] MEDS ORDERED: LORazepam 2 MG/ML VIAL IV ONE (03:01)
[2019-05-11] MEDS ORDERED: NALOXONE 0.4 MG/1 ML INJ IV ONE ×2 (03:22→03:24)
[2019-05-11] MEDS ORDERED: NALOXONE 2 MG/2 ML INJ ONE (03:23)
[2019-05-11] MEDS ORDERED: AMMONIA INHALANT IH ONE ×2 (03:27→04:05)
[2019-05-11] MEDS ORDERED: ACETAMINOPHEN 325 MG TAB PO PRN (04:00)
[2019-05-11] MEDS ORDERED: ONDANSETRON 4 MG/2 ML INJ IV PRN (04:00)
--- NOTE | 2019-05-11 04:09 | History and Physical Report ---
History of Present Illness History of present illness: 48-year-old man with a history of substance abuse was brought to the emergency room on 05 May for unresponsiveness. The patient was given ammonia which made him more alert, he subsequently became agitated and then was given Geodon. His urine was positive for marijuana, amphetamine. the patient was seen by psych and given clearance for discharge. The nurse noted today that the patient was minimally responsive but he is protecting his airway. IV Ativan was given in the emergency room, Narcan and ammonia without any improvement in his mental status. Old chart was reviewed, the patient was here in 2018 for similar presentation. Review of system is unobtainable PAST MEDICAL HISTORY: Unknown PAST SURGICAL HISTORY: Unknown SOCIAL HISTORY: drugs as discussed above, unknown tobacco, alcohol FAMILY HISTORY: Unknown Medications and Allergies Allergies Allergy/AdvReac Type Severity Reaction Status Date / Time No Known Allergies Allergy Verified 03/04/18 03:58 Home Medications Medication Instructions Recorded Confirmed Last Taken Type risperiDONE [RisperDAL] 0.5 mg PO BID #60 tablet 05/09/19 Unknown Rx Active Meds: Active Medications Acetaminophen (Tylenol) 650 mg PO Q4H PRN PRN Reason: Pain MILD(1-3)/Fever >100.5/DANIEL Enoxaparin Sodium (Enoxaparin) 30 mg SUB-Q QDAY GUNNAR Sodium Chloride (Nacl 0.9% 1000 Ml) 1,000 mls @ 150 mls/hr IV DIRECT GUNNAR Ondansetron HCl (Zofran) 4 mg IV Q8H PRN PRN Reason: Nausea And Vomiting Sodium Chloride (Sodium Chloride Flush Syringe 10 Ml) 10 ml IV BID GUNNAR Sodium Chloride (Sodium Chloride Flush Syringe 10 Ml) 10 ml IV PRN PRN PRN Reason: LINE FLUSH Exam - Physical Exam Narrative exam: Gen. appearance: Patient lying in bed, no apparent distress HEENT: Normocephalic, atraumatic, pupils equally round and reactive to light, eyes are , extraocular movement intact, and no sclericterus,. No JVD or thyromegaly or nodule,neck supple, no carotid bruit ,mucous membranes very dry, no exudate or erythema Heart: S1, S2, regular rate and rhythm Lungs: Clear bilaterally anteriorly, breathing comfortable Abdomen: Positive bowel sounds, soft, nondistended, no organomegaly Extremity:no edema cyanosis, clubbing Skin: no rash, dry, warm Neuro: Difficult to assess, minimally responsive to sternal rub - Constitutional Vitals: Temp Pulse Resp BP Pulse Ox 97.5 F L 58 L 18 133/70 95 05/11/19 01:25 05/11/19 01:25 05/11/19 01:25 05/11/19 01:25 05/11/19 01:25 Results - Labs CBC & Chem 7: 05/10/19 19:22 05/10/19 19:22 Labs: Abnormal lab results 05/10/19 05/10/19 Range/Units 19:22 19:22 WBC 13.1 H (4.5-11.0) K/mm3 RBC 5.65 H (3.65-5.03) M/mm3 Hgb 18.4 H (11.8-15.2) gm/dl Hct 51.0 H (35.5-45.6) % MCH 33 H (28-32) pg MCHC 36 H (32-34) % [place] % (Auto) 10.1 H (0.0-7.3) % [place] # 1.3 H (0.0-0.8) K/mm3 Seg Neutrophils # 8.9 H (1.8-7.7) K/mm3 Carbon Dioxide 16 L (22-30) mmol/L Creatinine 0.7 L (0.8-1.5) mg/dL Total Creatine Kinase 36 L (55-170) units/L - Imaging and Cardiology CT Scan - head: report reviewed Assessment and Plan Assessment Acute encephalopathy probably related to drugs Consult neurology, psych Dehydration Start IV fluid, repeat labs DVT prophylaxis
[2019-05-11] MEDS ORDERED: SODIUM CHLORIDE 0.9% 1000 ML 1,000 ML IV SCH (05:30)
[2019-05-11 06:02] LABS: Basophils # (Auto) 0.1 K/mm3 (0.0-0.1); Eosinophils # (Auto) 0.1 K/mm3 (0.0-0.4); Hematocrit 51.3 % (35.5-45.6); Hemoglobin 17.2 gm/dl (11.8-15.2); Lymphocytes # (Auto) 2.5 K/mm3 (1.2-5.4); Lymphocytes % (Auto) 19.6 % (13.4-35.0); Mean Corpuscular HGB Conc 34 % (32-34); Mean Corpuscular Volume 92 fl (84-94); Monocytes # (Auto) 1.4 K/mm3 (0.0-0.8); Monocytes % (Auto) 10.8 % (0.0-7.3); Platelet Count 360 K/mm3 (140-440); Red Blood Count 5.56 M/mm3 (3.65-5.03); Red Cell Distribution Width 14.3 % (13.2-15.2)
[2019-05-11 06:16] LABS: BUN/Creatinine Ratio 25; Blood Urea Nitrogen 20 mg/dL (9-20); Calcium 9.4 mg/dL (8.4-10.2); Hemolysis Index 50
[2019-05-11] MEDS: SODIUM CHLORIDE 0.9% 1000 ML 1,000 ML IV SCH ×2 (12:41→19:31)
[2019-05-11] MEDS: ENOXAPARIN 40 MG/0.4 ML INJ SUB-Q SCH (12:48)
--- NOTE | 2019-05-11 13:50 | Consultation ---
History of Present Illness - Reason for Consult Consult date: 05/11/19 Reason for consult: unresponsive - History of Present Psychiatric Illness Terrell Marshall is a 48y/o male patient who was followed by psychiatry in the ER and was signed off, and re-consulted. Attempted to interview the patient but was unable to get him to respond with vigorous tactile stimuli. PAST PSYCHIATRIC HISTORY: Unable to assess Family Psychiatric History Unable to assess SOCIAL HISTORY Unable to assess REVIEW OF SYSTEMS Unable to assess MSE Unable to assess Assessment: Altered Mental Status MSE Unable to assess rest of MSE Assessment: Altered Mental Status Drug Induced Mood Disorder Plan No scripts given Medical: Per primary Disposition: The patient does not meet the requirement for acute inpatient psychiatric treatment at this time. The patient can be discharged once medically cleared. Dr Alonzo informed and agrees with plan. The patient is to follow up with outpatient psych or primary care in 7 to 10 days. Will sign off. Thank you for this consult. Medications and Allergies Allergies Allergy/AdvReac Type Severity Reaction Status Date / Time No Known Allergies Allergy Verified 03/04/18 03:58 Home Medications Medication Instructions Recorded Confirmed Last Taken Type risperiDONE [RisperDAL] 0.5 mg PO BID #60 tablet 05/09/19 Unknown Rx Active Meds: Active Medications Acetaminophen (Tylenol) 650 mg PO Q4H PRN PRN Reason: Pain MILD(1-3)/Fever >100.5/DANIEL Enoxaparin Sodium (Enoxaparin) 40 mg SUB-Q QDAY [facility] Last Admin: 05/11/19 12:48 Dose: 40 mg Documented by: Sodium Chloride (Nacl 0.9% 1000 Ml) 1,000 mls @ 150 mls/hr IV DIRECT [facility] Last Admin: 05/11/19 12:41 Dose: 150 mls/hr Documented by: Ondansetron HCl (Zofran) 4 mg IV Q8H PRN PRN Reason: Nausea And Vomiting Sodium Chloride (Sodium Chloride Flush Syringe 10 Ml) 10 ml IV BID [facility] Last Admin: 05/11/19 11:00 Dose: 10 ml Documented by: Sodium Chloride (Sodium Chloride Flush Syringe 10 Ml) 10 ml IV PRN PRN PRN Reason: LINE FLUSH Mental Status Exam - Vital signs Last Vital Signs Temp 98.3 F 05/11/19 09:15 Pulse 68 05/11/19 09:15 Resp 16 05/11/19 09:27 BP 116/75 05/11/19 09:15 Pulse Ox 97 05/11/19 09:27 Results Result Diagrams: 05/11/19 05:44 05/11/19 05:44 Abnormal lab results 05/10/19 05/10/19 05/11/19 Range/Units 19:22 19:22 05:44 WBC 13.1 H 12.8 H (4.5-11.0) K/mm3 RBC 5.65 H 5.56 H (3.65-5.03) M/mm3 Hgb 18.4 H 17.2 H (11.8-15.2) gm/dl Hct 51.0 H 51.3 H (35.5-45.6) % MCH 33 H (28-32) pg MCHC 36 H (32-34) % [place] % (Auto) 10.1 H 10.8 H (0.0-7.3) % [place] # 1.3 H 1.4 H (0.0-0.8) K/mm3 Seg Neutrophils # 8.9 H 8.6 H (1.8-7.7) K/mm3 Carbon Dioxide 16 L (22-30) mmol/L Creatinine 0.7 L (0.8-1.5) mg/dL Total Creatine Kinase 36 L (55-170) units/L All other labs normal.
--- NOTE | 2019-05-11 16:44 | Event Note ---
Date: 05/11/19 Patient is catatonic No need for neurology eval. Discussed with ER Physician Dr Brown --that patient is catatonic and needs Psych admission. Even though patient was medically cleared patient was admitted to Tele for Dehydration. Patient needs In ppatient Psych treatment.For catatonic state. Neuro consult cancelled Discussed with Dr Batres and we are in concurrence. Cancelled Neuro consult
--- NOTE | 2019-05-11 16:50 | Event Note ---
Date: 05/11/19 Was consulted to see patient for altered mental status. Discussed patient with primary attending, Dr. Hinkle, who stated that he does not feel that patient would require neurology consult, as per his assessment, patient is catatonic. He therefore cancelled neurology consult, and requested that I do not see patient at this time. Discussed that if he would like for me to evaluate patient, to call me back, and I will assess patient for altered mental status, which will likely require investigations including MRI brain, EEG, and possibly LP/CSF studies.
[2019-05-11] MEDS ORDERED: DEXTROSE 50% IN WATER (25GM) 50 ML SYRINGE IV ONE (21:00)
--- NOTE | 2019-05-11 21:05 | Progress Note ---
Assessment and Plan Assessment and plan: Patient is 48 yo man with a history of substance abuse who initially was brought to [facility] on 05/05/2019. The patient was given ammonia which made him more alert, he subsequently became agitated and then was given Geodon. His urine was positive for marijuana, amphetamine. The patient was seen by psych and given clearance for discharge home. Then patient had change in mental status and ED physician asked for admission after 4 days in the ED. Patient was minimally responsive but he is protecting his airway. IV Ativan was given in the emergency room, Narcan and ammonia without any improvement in his mental status. Old chart was reviewed, the patient was here in 2018 for similar presentation. Acute toxic encephalopathy probably related to Methamphetamine with iv ativan, pupils pinpoint and he is snoring usually happens with iv ativan, given narcan with did not help, flumazenil wasn't given to reverse ativan. Hypoglycemia: not eating, treat with iv dextrose, start IVF with dextrose Methampetamine toxicity; supportative care Leukocytosis, neg UA for UTI, negative cxr for pneumonia. most likely reactive. History Interval history: Patient was seen and examined. Follow-up on current diagnosis of AMS. Overnight uneventful as no events directly reported to me. Imaging, nursing note, chart, labs and old chart reviewed. Discussed with nurse. Hospitalist Physical - Physical exam Narrative exam: Gen: wdwn, during my exam he was snoring, then stop, when I examined his eyes, he flinched, then the move his legs witnessed by nursing HEENT: NCAT, EOMI, pupils reactive but pinpoint Neck: supple, no adenopathy, no thyromegaly, no JVD CVS/Heart: RRR, normal S1S2, pulses present bilaterally Chest/Lungs: CTA B, Symmetrical chest expansion, good air entry bilaterally GI/Abdomen: soft, NTND, good bowel sounds, no guarding or rebound /Bladder: no suprapubic tenderness, no CVA or paraspinal tenderness Extermity/Skin: no c/c/e, no obvious rash MSK: +bilateral leg spontaneous movement Neuro: CN 2-12 grossly intact, noncooperative Psych: catatonic - Constitutional Vitals: Temp Pulse Resp BP Pulse Ox 98.3 F 68 18 133/75 97 05/11/19 20:55 05/11/19 20:55 05/11/19 20:55 05/11/19 20:55 05/11/19 20:55 Results - Labs CBC & Chem 7: 05/11/19 05:44 05/11/19 05:44 Labs: Laboratory Last Values WBC 12.8 K/mm3 (4.5-11.0) H 05/11/19 05:44 RBC 5.56 M/mm3 (3.65-5.03) H 05/11/19 05:44 Hgb 17.2 gm/dl (11.8-15.2) H 05/11/19 05:44 Hct 51.3 % (35.5-45.6) H 05/11/19 05:44 MCV 92 fl (84-94) 05/11/19 05:44 MCH 31 pg (28-32) 05/11/19 05:44 MCHC 34 % (32-34) 05/11/19 05:44 RDW 14.3 % (13.2-15.2) 05/11/19 05:44 Plt Count 360 K/mm3 (140-440) 05/11/19 05:44 Lymph % (Auto) 19.6 % (13.4-35.0) 05/11/19 05:44 [place] % (Auto) 10.8 % (0.0-7.3) H 05/11/19 05:44 Eos % (Auto) 1.0 % (0.0-4.3) 05/11/19 05:44 Baso % (Auto) 1.0 % (0.0-1.8) 05/11/19 05:44 Lymph # 2.5 K/mm3 (1.2-5.4) 05/11/19 05:44 [place] # 1.4 K/mm3 (0.0-0.8) H 05/11/19 05:44 Eos # 0.1 K/mm3 (0.0-0.4) 05/11/19 05:44 Baso # 0.1 K/mm3 (0.0-0.1) 05/11/19 05:44 Seg Neutrophils % 67.6 % (40.0-70.0) 05/11/19 05:44 Seg Neutrophils # 8.6 K/mm3 (1.8-7.7) H 05/11/19 05:44 VBG pH 7.372 (7.320-7.420) 05/10/19 21:51 Sodium 144 mmol/L (137-145) 05/11/19 05:44 Potassium 4.3 mmol/L (3.6-5.0) 05/11/19 05:44 Chloride 107.0 mmol/L (98-107) 05/11/19 05:44 Carbon Dioxide 22 mmol/L (22-30) 05/11/19 05:44 Anion Gap 19 mmol/L 05/11/19 05:44 BUN 20 mg/dL (9-20) 05/11/19 05:44 Creatinine 0.8 mg/dL (0.8-1.5) 05/11/19 05:44 Estimated GFR > 60 ml/min 05/11/19 05:44 BUN/Creatinine Ratio 25 % 05/11/19 05:44 Glucose 78 mg/dL (75-100) 05/11/19 05:44 POC Glucose 59 (70-105) L 05/11/19 16:18 Lactic Acid 1.90 mmol/L (0.7-2.0) 05/05/19 20:52 Calcium 9.4 mg/dL (8.4-10.2) 05/11/19 05:44 Total Bilirubin 0.40 mg/dL (0.1-1.2) 05/10/19 19:22 AST 15 units/L (5-40) 05/10/19 19:22 ALT 13 units/L (7-56) 05/10/19 19:22 Alkaline Phosphatase 128 units/L (35-129) 05/10/19 19:22 Ammonia 44.0 umol/L (25-60) 05/11/19 02:23 Total Creatine Kinase 36 units/L (55-170) L 05/10/19 19:22 Total Protein 8.1 g/dL (6.3-8.2) 05/10/19 19:22 Albumin 4.1 g/dL (3.9-5) 05/10/19 19:22 Albumin/Globulin Ratio 1.0 % 05/10/19 19:22 Urine Color [place] (Yellow) 05/05/19 23:49 Urine Turbidity Clear (Clear) 05/05/19 23:49 Urine pH 6.0 (5.0-7.0) 05/05/19 23:49 Ur Specific [place] 1.029 (1.003-1.030) 05/05/19 23:49 Urine Protein 30 mg/dl mg/dL (Negative) 05/05/19 23:49 Urine Glucose (UA) Neg mg/dL (Negative) 05/05/19 23:49 Urine Ketones 80 mg/dL (Negative) 05/05/19 23:49 Urine Blood Neg (Negative) 05/05/19 23:49 Urine Nitrite Neg (Negative) 05/05/19 23:49 Urine Bilirubin Neg (Negative) 05/05/19 23:49 Urine Urobilinogen 4.0 mg/dL (<2.0) 05/05/19 23:49 Ur Leukocyte Esterase Neg (Negative) 05/05/19 23:49 Urine WBC (Auto) 2.0 /HPF (0.0-6.0) 05/05/19 23:49 Urine RBC (Auto) 3.0 /HPF (0.0-6.0) 05/05/19 23:49 U Epithel Cells (Auto) 1.0 /HPF (0-13.0) 05/05/19 23:49 Urine Mucus 3+ /HPF 05/05/19 23:49 Salicylates < 0.3 mg/dL (2.8-20.0) L 05/05/19 20:52 Urine Opiates Screen Presumptive negative 05/05/19 23:49 Urine Methadone Screen Presumptive negative 05/05/19 23:49 Acetaminophen < 5.0 ug/mL (10.0-30.0) L 05/05/19 20:52 Ur Barbiturates Screen Presumptive negative 05/05/19 23:49 Ur Phencyclidine Scrn Presumptive negative 05/05/19 23:49 Ur Amphetamines Screen Presumptive positive 05/05/19 23:49 U Benzodiazepines Scrn Presumptive negative 05/05/19 23:49 Urine Cocaine Screen Presumptive negative 05/05/19 23:49 U Marijuana (THC) Screen Presumptive positive 05/05/19 23:49 Drugs of Abuse Note Disclamer 05/05/19 23:49 Plasma/Serum Alcohol < 0.01 % (0-0.07) 05/05/19 20:52 Active Medications - Current Medications Current Medications: Generic Name Dose Route Start Last Admin Trade Name Freq PRN Reason Stop Dose Admin Acetaminophen 650 mg 01/30/20 04:00 Tylenol PO Q4H PRN Pain MILD(1-3)/Fever >100.5/DANIEL Enoxaparin Sodium 40 mg 05/11/19 10:00 05/11/19 12:48 Enoxaparin SUB-Q 40 mg QDAY GUNNAR Administration Sodium Chloride 1,000 mls @ 150 mls/hr 05/11/19 04:00 05/11/19 19:31 Nacl 0.9% 1000 Ml IV 150 mls/hr DIRECT GUNNAR Administration Ondansetron HCl 4 mg 05/11/19 04:00 Zofran IV Q8H PRN Nausea And Vomiting Sodium Chloride 10 ml 05/11/19 10:00 05/11/19 11:00 Sodium Chloride Flush Syringe 10 Ml IV 10 ml BID GUNNAR Administration Sodium Chloride 10 ml 05/11/19 04:00 Sodium Chloride Flush Syringe 10 Ml IV PRN PRN LINE FLUSH
[2019-05-11] MEDS: D5W/0.45% NACL 1,000 ML IV SCH (22:49)
[2019-05-12 05:11] LABS: Hematocrit 44.8 % (35.5-45.6); Hemoglobin 15.4 gm/dl (11.8-15.2); Mean Corpuscular HGB Conc 34 % (32-34); Mean Corpuscular Volume 91 fl (84-94); Platelet Count 326 K/mm3 (140-440); Red Blood Count 4.93 M/mm3 (3.65-5.03); Red Cell Distribution Width 14.1 % (13.2-15.2)
[2019-05-12 05:31] LABS: BUN/Creatinine Ratio 23; Blood Urea Nitrogen 16 mg/dL (9-20); Calcium 8.8 mg/dL (8.4-10.2); Hemolysis Index 4
--- NOTE | 2019-05-12 07:59 | Progress Note ---
Assessment and Plan Assessment and plan: Patient is 48 yo man with a history of Schizophrenia and substance abuse who initially was brought to [facility] on 05/05/2019. The patient was given ammonia which made him more alert, he subsequently became agitated and then was given Geodon. His urine was positive for marijuana, amphetamine. The patient was seen by psych and given clearance for discharge home. Then patient had change in mental status and ED physician asked for admission after 4 days in the ED. Patient was minimally responsive but he is protecting his airway. IV Ativan was given in the emergency room, Narcan and ammonia without any improvement in his mental status. Old chart was reviewed, the patient was here in 2018 for s imilar presentation. Acute toxic encephalopathy probably related to Methamphetamine Hypoglycemia: not eating, treat with iv dextrose, start IVF with dextrose Methampetamine toxicity; supportive care, counseling to be done once awake Leukocytosis, neg UA for UTI, negative cxr for pneumonia. most likely reactive. 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 iv ativan has a long half life. I spoke with mother at bedside, she reports that his mental status is the same as the his catatonia. patient's had 2 or 3rd catatonic state which unusually last about 2 weeks. Patient has extensively Schizophrenia history and being noncompliant with medications. History Interval history: Patient was seen and examined. Follow-up on current diagnosis of AMS. Overnight uneventful as no events directly reported to me. Imaging, nursing note, chart, labs and old chart reviewed. Discussed with nurse. He is not responding, still in a slumber but he is repositioning himself in bed. Hospitalist Physical - Physical exam Narrative exam: Gen: wdwn, during my exam he was snoring, then stop, when I examined his eyes, he flinched, then the move his legs witnessed by nursing HEENT: NCAT, EOMI, pupils reactive but pinpoint Neck: supple, no adenopathy, no thyromegaly, no JVD CVS/Heart: RRR, normal S1S2, pulses present bilaterally Chest/Lungs: CTA B, Symmetrical chest expansion, good air entry bilaterally GI/Abdomen: soft, NTND, good bowel sounds, no guarding or rebound /Bladder: no suprapubic tenderness, no CVA or paraspinal tenderness Extermity/Skin: no c/c/e, no obvious rash MSK: +bilateral leg spontaneous movement Neuro: CN 2-12 grossly intact, noncooperative Psych: catatonic - Constitutional Vitals: Temp Pulse Resp BP Pulse Ox 98.6 F 64 20 130/71 97 05/11/19 23:45 05/11/19 23:45 05/11/19 23:45 05/11/19 23:45 05/11/19 23:45 Results - Labs CBC & Chem 7: 05/12/19 04:13 05/12/19 04:13 Labs: Laboratory Last Values WBC 11.8 K/mm3 (4.5-11.0) H 05/12/19 04:13 RBC 4.93 M/mm3 (3.65-5.03) 05/12/19 04:13 Hgb 15.4 gm/dl (11.8-15.2) H 05/12/19 04:13 Hct 44.8 % (35.5-45.6) D 05/12/19 04:13 MCV 91 fl (84-94) 05/12/19 04:13 MCH 31 pg (28-32) 05/12/19 04:13 MCHC 34 % (32-34) 05/12/19 04:13 RDW 14.1 % (13.2-15.2) 05/12/19 04:13 Plt Count 326 K/mm3 (140-440) 05/12/19 04:13 Lymph % (Auto) 19.6 % (13.4-35.0) 05/11/19 05:44 [place] % (Auto) 10.8 % (0.0-7.3) H 05/11/19 05:44 Eos % (Auto) 1.0 % (0.0-4.3) 05/11/19 05:44 Baso % (Auto) 1.0 % (0.0-1.8) 05/11/19 05:44 Lymph # 2.5 K/mm3 (1.2-5.4) 05/11/19 05:44 [place] # 1.4 K/mm3 (0.0-0.8) H 05/11/19 05:44 Eos # 0.1 K/mm3 (0.0-0.4) 05/11/19 05:44 Baso # 0.1 K/mm3 (0.0-0.1) 05/11/19 05:44 Seg Neutrophils % 67.6 % (40.0-70.0) 05/11/19 05:44 Seg Neutrophils # 8.6 K/mm3 (1.8-7.7) H 05/11/19 05:44 VBG pH 7.372 (7.320-7.420) 05/10/19 21:51 Sodium 140 mmol/L (137-145) 05/12/19 04:13 Potassium 3.3 mmol/L (3.6-5.0) L D 05/12/19 04:13 Chloride 104.8 mmol/L (98-107) 05/12/19 04:13 Carbon Dioxide 23 mmol/L (22-30) 05/12/19 04:13 Anion Gap 16 mmol/L 05/12/19 04:13 BUN 16 mg/dL (9-20) 05/12/19 04:13 Creatinine 0.7 mg/dL (0.8-1.5) L 05/12/19 04:13 Estimated GFR > 60 ml/min 05/12/19 04:13 BUN/Creatinine Ratio 23 % 05/12/19 04:13 Glucose 121 mg/dL (75-100) H 05/12/19 04:13 POC Glucose 136 (70-105) H 05/12/19 00:52 Lactic Acid 1.90 mmol/L (0.7-2.0) 05/05/19 20:52 Calcium 8.8 mg/dL (8.4-10.2) 05/12/19 04:13 Total Bilirubin 0.40 mg/dL (0.1-1.2) 05/10/19 19:22 AST 15 units/L (5-40) 05/10/19 19:22 ALT 13 units/L (7-56) 05/10/19 19:22 Alkaline Phosphatase 128 units/L (35-129) 05/10/19 19:22 Ammonia 44.0 umol/L (25-60) 05/11/19 02:23 Total Creatine Kinase 36 units/L (55-170) L 05/10/19 19:22 Total Protein 8.1 g/dL (6.3-8.2) 05/10/19 19: Albumin 4.1 g/dL (3.9-5) 05/10/19 19: Albumin/Globulin Ratio 1.0 % 05/10/19 19:22 Urine Color Fadumo (Yellow) 05/05/19 23:49 Urine Turbidity Clear (Clear) 05/05/19 23:49 Urine pH 6.0 (5.0-7.0) 05/05/19 23:49 Ur Specific [place] 1.029 (1.003-1.030) 05/05/19 23:49 Urine Protein 30 mg/dl mg/dL (Negative) 05/05/19 23:49 Urine Glucose (UA) Neg mg/dL (Negative) 05/05/19 23:49 Urine Ketones 80 mg/dL (Negative) 05/05/19 23:49 Urine Blood Neg (Negative) 05/05/19 23:49 Urine Nitrite Neg (Negative) 05/05/19 23:49 Urine Bilirubin Neg (Negative) 05/05/19 23:49 Urine Urobilinogen 4.0 mg/dL (<2.0) 05/05/19 23:49 Ur Leukocyte Esterase Neg (Negative) 05/05/19 23:49 Urine WBC (Auto) 2.0 /HPF (0.0-6.0) 05/05/19 23:49 Urine RBC (Auto) 3.0 /HPF (0.0-6.0) 05/05/19 23:49 U Epithel Cells (Auto) 1.0 /HPF (0-13.0) 05/05/19 23:49 Urine Mucus 3+ /HPF 05/05/19 23:49 Salicylates < 0.3 mg/dL (2.8-20.0) L 05/05/19 20:52 Urine Opiates Screen Presumptive negative 05/05/19 23:49 Urine Methadone Screen Presumptive negative 05/05/19 23:49 Acetaminophen < 5.0 ug/mL (10.0-30.0) L 05/05/19 20:52 Ur Barbiturates Screen Presumptive negative 05/05/19 23:49 Ur Phencyclidine Scrn Presumptive negative 05/05/19 23:49 Ur Amphetamines Screen Presumptive positive 05/05/19 23:49 U Benzodiazepines Scrn Presumptive negative 05/05/19 23:49 Urine Cocaine Screen Presumptive negative 05/05/19 23:49 U Marijuana (THC) Screen Presumptive positive 05/05/19 23:49 Drugs of Abuse Note Disclamer 05/05/19 23:49 Plasma/Serum Alcohol < 0.01 % (0-0.07) 05/05/19 20:52 Active Medications - Current Medications Current Medications: Generic Name Dose Route Start Last Admin Trade Name Freq PRN Reason Stop Dose Admin Acetaminophen 650 mg 05/11/19 04:00 Tylenol PO Q4H PRN Pain MILD(1-3)/Fever >100.5/DANIEL Enoxaparin Sodium 40 mg 05/11/19 10:00 05/11/19 12:48 Enoxaparin SUB-Q 40 mg QDAY GUNNAR Administration Dextrose/Sodium Chloride 1,000 mls @ 100 mls/hr 05/11/19 22:00 05/11/19 22:49 D5/0.45ns IV 100 mls/hr DIRECT GUNNAR Administration Ondansetron HCl 4 mg 05/11/19 04:00 Zofran IV Q8H PRN Nausea And Vomiting Potassium Chloride 40 meq 05/12/19 07:53 K-Dur PO 05/12/19 07:54 ONCE ONE Sodium Chloride 10 ml 05/11/19 10:00 05/11/19 23:07 Sodium Chloride Flush Syringe 10 Ml IV 10 ml BID GUNNAR Administration Sodium Chloride 10 ml 05/11/19 04:00 Sodium Chloride Flush Syringe 10 Ml IV PRN PRN LINE FLUSH
[2019-05-12] MEDS ORDERED: POTASSIUM CHLORIDE ER 20 MEQ TAB PO SCH (08:00)
[2019-05-12] MEDS: ENOXAPARIN 40 MG/0.4 ML INJ SUB-Q SCH (10:02)
[2019-05-12] MEDS: D5W/0.45% NACL 1,000 ML IV SCH ×2 (10:03→20:03)
[2019-05-12] MEDS: POTASSIUM CHLORIDE 10 MEQ 10 MEQ/100 ML BAG IV SCH ×4 (15:31→19:05)
[2019-05-12] MEDS: LORazepam 2 MG/ML VIAL IV SCH (15:55)
[2019-05-13] MEDS: LORazepam 2 MG/ML VIAL IV SCH ×4 (00:08→21:56)
[2019-05-13 06:01] LABS: Hematocrit 44.2 % (35.5-45.6); Hemoglobin 15.2 gm/dl (11.8-15.2); Mean Corpuscular HGB Conc 34 % (32-34); Mean Corpuscular Volume 91 fl (84-94); Platelet Count 309 K/mm3 (140-440); Red Blood Count 4.88 M/mm3 (3.65-5.03); Red Cell Distribution Width 14.1 % (13.2-15.2)
[2019-05-13 06:50] LABS: BUN/Creatinine Ratio 12; Blood Urea Nitrogen 7 mg/dL (9-20); Calcium 8.9 mg/dL (8.4-10.2); Hemolysis Index 15
[2019-05-13] MEDS: D5W/0.45% NACL 1,000 ML IV SCH (07:51)
[2019-05-13] MEDS: ENOXAPARIN 40 MG/0.4 ML INJ SUB-Q SCH (09:34)
--- NOTE | 2019-05-13 14:57 | Progress Note ---
Assessment and Plan Assessment and plan: Patient is 48 yo man with a history of Schizophrenia and substance abuse who initially was brought to [facility] on 05/05/2019. The patient was given ammonia which made him more alert, he subsequently became agitated and then was given Geodon. His urine was positive for marijuana, amphetamine. The patient was seen by psych and given clearance for discharge home. Then patient had change in mental status and ED physician asked for admission after 4 days in the ED. Patient was minimally responsive but he is protecting his airway. IV Ativan was given in the emergency room, Narcan and ammonia without any improvement in his mental status. Old chart was reviewed, the patient was here in 2018 for s imilar presentation. Acute toxic encephalopathy probably related to Methamphetamine Hypoglycemia: not eating, treat with iv dextrose, start IVF with dextrose Methampetamine toxicity; supportive care, counseling to be done once awake Leukocytosis, neg UA for UTI, negative cxr for pneumonia. most likely reactive. 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 I spoke with mother at bedside on Wednesday05/12/2019, she reports that his mental status is the same as the his catatonia. patient's had 2 or 3rd catatonic state which unusually last about 2 weeks. Patient has extensively Schizophrenia history and being noncompliant with medications. Mother says that this is his typical catatonic state and usually Ativan wakes him up. D/W psych, will start IV ativan regimen. Mother also says that he gets like this when he doesn't take his medications. He has extensive schizophrenia history, there are camera in his home to monitor him. He is typically mental ok when he is on his psych medications. Mother absolutely right, patient woke up with IV ativan. He is responding, he is awake, asking for coffee and when I left the room he threw up the "peace sign". When respiratory therapy later went to check on him he was not responding to her. This patient has quite a bit of mental health issues and needs inpatient psych stabilization. I reached out to Mental health to re-evaluate History Interval history: Patient was seen and examined. Follow-up on current diagnosis of AMS. Overnight uneventful as no events directly reported to me. Imaging, nursing note, chart, labs and old chart reviewed. Discussed with nurse. He is responding, he is awake, asking for coffee and when I left the room he threw up the "peace sign" Hospitalist Physical - Physical exam Narrative exam: Gen: wdwn, during my exam he was snoring, then stop, when I examined his eyes, he flinched, then the move his legs witnessed by nursing HEENT: NCAT, EOMI, pupils reactive but pinpoint Neck: supple, no adenopathy, no thyromegaly, no JVD CVS/Heart: RRR, normal S1S2, pulses present bilaterally Chest/Lungs: CTA B, Symmetrical chest expansion, good air entry bilaterally GI/Abdomen: soft, NTND, good bowel sounds, no guarding or rebound /Bladder: no suprapubic tenderness, no CVA or paraspinal tenderness Extermity/Skin: no c/c/e, no obvious rash MSK: +bilateral leg spontaneous movement Neuro: CN 2-12 grossly intact, noncooperative Psych: catatonic - Constitutional Vitals: Temp Pulse Resp BP Pulse Ox 98.9 F 80 20 120/68 94 05/13/19 04:38 05/13/19 12:49 05/13/19 08:27 05/13/19 04:38 05/13/19 12:15 Results - Labs CBC & Chem 7: 05/13/19 04:48 05/13/19 04:48 Labs: Laboratory Last Values WBC 11.1 K/mm3 (4.5-11.0) H 05/13/19 04:48 RBC 4.88 M/mm3 (3.65-5.03) 05/13/19 04:48 Hgb 15.2 gm/dl (11.8-15.2) 05/13/19 04:48 Hct 44.2 % (35.5-45.6) 05/13/19 04:48 MCV 91 fl (84-94) 05/13/19 04:48 MCH 31 pg (28-32) 05/13/19 04:48 MCHC 34 % (32-34) 05/13/19 04:48 RDW 14.1 % (13.2-15.2) 05/13/19 04:48 Plt Count 309 K/mm3 (140-440) 05/13/19 04:48 Lymph % (Auto) 19.6 % (13.4-35.0) 05/11/19 05:44 [place] % (Auto) 10.8 % (0.0-7.3) H 05/11/19 05:44 Eos % (Auto) 1.0 % (0.0-4.3) 05/11/19 05:44 Baso % (Auto) 1.0 % (0.0-1.8) 05/11/19 05:44 Lymph # 2.5 K/mm3 (1.2-5.4) 05/11/19 05:44 [place] # 1.4 K/mm3 (0.0-0.8) H 05/11/19 05:44 Eos # 0.1 K/mm3 (0.0-0.4) 05/11/19 05:44 Baso # 0.1 K/mm3 (0.0-0.1) 05/11/19 05:44 Seg Neutrophils % 67.6 % (40.0-70.0) 05/11/19 05:44 Seg Neutrophils # 8.6 K/mm3 (1.8-7.7) H 05/11/19 05:44 VBG pH 7.372 (7.320-7.420) 05/10/19 21:51 Sodium 138 mmol/L (137-145) 05/13/19 04:48 Potassium 3.3 mmol/L (3.6-5.0) L 05/13/19 04:48 Chloride 102.3 mmol/L (98-107) 05/13/19 04:48 Carbon Dioxide 21 mmol/L (22-30) L 05/13/19 04:48 Anion Gap 18 mmol/L 05/13/19 04:48 BUN 7 mg/dL (9-20) L 05/13/19 04:48 Creatinine 0.6 mg/dL (0.8-1.5) L 05/13/19 04:48 Estimated GFR > 60 ml/min 05/13/19 04:48 BUN/Creatinine Ratio 12 % 05/13/19 04:48 Glucose 105 mg/dL (75-100) H 05/13/19 04:48 POC Glucose 93 (70-105) 05/12/19 18:56 Lactic Acid 1.90 mmol/L (0.7-2.0) 05/05/19 20:52 Calcium 8.9 mg/dL (8.4-10.2) 05/13/19 04:48 Total Bilirubin 0.40 mg/dL (0.1-1.2) 05/10/19 19:22 AST 15 units/L (5-40) 05/10/19 19:22 ALT 13 units/L (7-56) 05/10/19 19:22 Alkaline Phosphatase 128 units/L (35-129) 05/10/19 19:22 Ammonia 44.0 umol/L (25-60) 05/11/19 02:23 Total Creatine Kinase 36 units/L (55-170) L 05/10/19 19:22 Total Protein 8.1 g/dL (6.3-8.2) 05/10/19 19:22 Albumin 4.1 g/dL (3.9-5) 05/10/19 19:22 Albumin/Globulin Ratio 1.0 % 05/10/19 19:22 Urine Color Fadumo (Yellow) 05/05/19 23:49 Urine Turbidity Clear (Clear) 05/05/19 23:49 Urine pH 6.0 (5.0-7.0) 05/05/19 23:49 Ur Specific [place] 1.029 (1.003-1.030) 05/05/19 23:49 Urine Protein 30 mg/dl mg/dL (Negative) 05/05/19 23:49 Urine Glucose (UA) Neg mg/dL (Negative) 05/05/19 23:49 Urine Ketones 80 mg/dL (Negative) 05/05/19 23:49 Urine Blood Neg (Negative) 05/05/19 23:49 Urine Nitrite Neg (Negative) 05/05/19 23:49 Urine Bilirubin Neg (Negative) 05/05/19 23:49 Urine Urobilinogen 4.0 mg/dL (<2.0) 05/05/19 23:49 Ur Leukocyte Esterase Neg (Negative) 05/05/19 23:49 Urine WBC (Auto) 2.0 /HPF (0.0-6.0) 05/05/19 23:49 Urine RBC (Auto) 3.0 /HPF (0.0-6.0) 05/05/19 23:49 U Epithel Cells (Auto) 1.0 /HPF (0-13.0) 05/05/19 23:49 Urine Mucus 3+ /HPF 05/05/19 23:49 Salicylates < 0.3 mg/dL (2.8-20.0) L 05/05/19 20:52 Urine Opiates Screen Presumptive negative 05/05/19 23:49 Urine Methadone Screen Presumptive negative 05/05/19 23:49 Acetaminophen < 5.0 ug/mL (10.0-30.0) L 05/05/19 20:52 Ur Barbiturates Screen Presumptive negative 05/05/19 23:49 Ur Phencyclidine Scrn Presumptive negative 05/05/19 23:49 Ur Amphetamines Screen Presumptive positive 05/05/19 23:49 U Benzodiazepines Scrn Presumptive negative 05/05/19 23:49 Urine Cocaine Screen Presumptive negative 05/05/19 23:49 U Marijuana (THC) Screen Presumptive positive 05/05/19 23:49 Drugs of Abuse Note Disclamer 05/05/19 23:49 Plasma/Serum Alcohol < 0.01 % (0-0.07) 05/05/19 20:52 Active Medications - Current Medications Current Medications: Generic Name Dose Route Start Last Admin Trade Name Freq PRN Reason Stop Dose Admin Acetaminophen 650 mg 05/11/19 04:00 Tylenol PO Q4H PRN Pain MILD(1-3)/Fever >100.5/DANIEL Enoxaparin Sodium 40 mg 05/11/19 10:00 05/13/19 09:34 Enoxaparin SUB-Q 40 mg QDAY GUNNAR Administration Dextrose/Sodium Chloride 1,000 mls @ 100 mls/hr 05/11/19 22:00 05/13/19 07:51 D5/0.45ns IV 100 mls/hr DIRECT GUNNAR Administration Lorazepam 1 mg 05/12/19 15:00 05/13/19 07:55 Ativan IV 1 mg Q8H GUNNAR Administration Ondansetron HCl 4 mg 05/11/19 04:00 Zofran IV Q8H PRN Nausea And Vomiting Sodium Chloride 10 ml 05/11/19 10:00 05/13/19 09:34 Sodium Chloride Flush Syringe 10 Ml IV 10 ml BID GUNNAR Administration Sodium Chloride 10 ml 05/11/19 04:00 Sodium Chloride Flush Syringe 10 Ml IV PRN PRN LINE FLUSH
[2019-05-13] MEDS ORDERED: D5W/0.45% NACL 1,000 ML with POTASSIUM CHLORIDE 20 MEQ IV SCH (15:00)
[2019-05-13] MEDS ORDERED: D5W/0.45% NACL/KCL 20 MEQ 20 MEQ/1,000 ML BAG IV SCH (15:00)
[2019-05-13] MEDS ORDERED: ZOLPIDEM 5 MG TAB PO ONE (23:00)
[2019-05-14] MEDS ORDERED: ZOLPIDEM 5 MG TAB PO ONE (01:40)
[2019-05-14 05:50] VITALS: BP 115/78
[2019-05-14] MEDS: LORazepam 2 MG/ML VIAL IV SCH ×2 (07:30→15:15)
--- NOTE | 2019-05-14 09:08 | Consultation ---
History of Present Illness - Reason for Consult Consult date: 05/14/19 Reason for consult: psychiatric assessment - Chief Complaint Chief complaint: mr rowe is a 48-year-old male. Patient is alert and oriented 2,the patient is in bed stripping his clothes off. Patient maintain piercing eye contact. The patient's speech is pressured and fast. When asked why he was here in the hospital the patient stated I don't remember,I have a history of TBI. Patient denies suicidal or homicidal ideations. The patient does report auditory hallucinations, he states I hear the traffic, I hear things so many things. When asked to expand patient stated ," i forgot". The patient is noted with irritable mood, patient repeatedly changes conversational topic and has trouble focusing. The patient reports he has not taken his medications for a wh ile because he has to fast and pray because the lord is coming he then stated, "what is wrong with that". he then further stated, i cant remember to take my medication and i have not seen a psychiatric doctor, my regular doctor prescribe my medications. i really would like to see a psychiatric doctor". The patient stated "I was depressed before I was admitted , but I am over it now". when asked how was he over it, he states, "because I need to go home and take a bath". the patient reports that he is eating well but is not sure how much he is sleeping.the patient reports that he doesn't remember the medications that he takes. the patient does report self-harm behavior in the past but doesn't remember what it was. Patient is noncompliant with medication and would do well with medication management and symptom stabilization PAST PSYCHIATRIC HISTORY: Diagnoses: Suicide attempts or Self-harm behavior:yes Prior psychiatric hospitalizations:yes Substance Abuse history:marijuana Previous psychiatric medications tried:Seroquel, depakote, olanzapine Outpatient treatment: pcp PAST MEDICAL HISTORY: TBI Family Psychiatric History None reported or documented SOCIAL HISTORY Marital Status: single Living Arrangements: girlfriend Employment Status:disable Access to guns/weapons: denies Education: negative. History of Abuse: denies Legal History: YES REVIEW OF SYSTEMS Constitutional: Negative for weight loss ENT: Negative for stridor Respiratory: Negative for cough or hemoptysis All other systems reviewed and are negative MENTAL STATUS General Appearance and Behavior: age appropriate, piercing eye contact, uncooperative at times Cooperation: unCooperative at times Psychomotor Behavior: agitated Mood: "good" Affect and affective range: euphoric Thought Process: circumtantial Thought Content: Within reality Speech: fast and pressured Intellectual Functioning Average Suicidal Ideation: Denies SI Homicidal Ideation: Denies HI Impulse Control: intact Insight and Judgment: poor Memory: forgetful Attention: Orientation: alert and oriented RECOMMENDATIONS MEDICATIONS: depakote 500mg daily, olanzapine 10mg daily Risks, benefits and alternatives of medications discussed with the patient, questions answered and consent obtained from patient. PSYCHOTHERAPY: Supportive psychotherapy provided MEDICAL: Per primary team DELIRIUM PRECAUTIONS: Please re-orient patient frequently, keep lights on during the day, and minimize benzodiazepines and opiates as these medications could worsen patient's confusion. CERAMIC ARTIST: DISPOSITION: Due to the psychiatric conditions and treatment listed in the Assessment - the patient requires inpatient hospitalization. Will continue inpatient treatment to allow for medication adjustment and monitoring. we'll accept the patient to the [facility] floor pending nurse to nurse communication and clearance. The patient can be 1014 to the floor if needed LEGAL STATUS:1014 Medications and Allergies Allergies Allergy/AdvReac Type Severity Reaction Status Date / Time No Known Allergies Allergy Verified 03/04/18 03:58 Home Medications Medication Instructions Recorded Confirmed Last Taken Type risperiDONE [RisperDAL] 0.5 mg PO BID #60 tablet 05/09/19 Unknown Rx Active Meds: Active Medications Acetaminophen (Tylenol) 650 mg PO Q4H PRN PRN Reason: Pain MILD(1-3)/Fever >100.5/DANIEL Divalproex Sodium (Depakote Er) 500 mg PO QDAY [facility] Enoxaparin Sodium (Enoxaparin) 40 mg SUB-Q QDAY [facility] Last Admin: 05/13/19 09:34 Dose: 40 mg Documented by: Potassium Chloride/Dextrose/Sod Cl (D5w/0.45% Nacl/Kcl 20 Meq) 20 meq in 1,000 mls @ 100 mls/hr IV DIRECT [facility] Last Admin: 05/13/19 15:29 Dose: 100 mls/hr Documented by: Lorazepam (Ativan) 1 mg IV Q12H [facility] Last Admin: 05/14/19 07:30 Dose: Not Given Documented by: Olanzapine (Zyprexa) 10 mg PO QDAY [facility] Ondansetron HCl (Zofran) 4 mg IV Q8H PRN PRN Reason: Nausea And Vomiting Sodium Chloride (Sodium Chloride Flush Syringe 10 Ml) 10 ml IV BID GUNNAR Last Admin: 05/14/19 01:48 Dose: 10 ml Documented by: Sodium Chloride (Sodium Chloride Flush Syringe 10 Ml) 10 ml IV PRN PRN PRN Reason: LINE FLUSH Mental Status Exam - Vital signs Last Vital Signs Temp 97.9 F 05/14/19 05:50 Pulse 94 H 05/14/19 05:48 Resp 18 05/14/19 05:48 BP 115/78 05/14/19 05:48 Pulse Ox 99 05/14/19 05:48 Results Result Diagrams: 05/13/19 04:48 05/13/19 04:48 All other labs normal.
[2019-05-14] MEDS ORDERED: DIVALPROEX ER 500 MG TAB PO SCH (10:00)
[2019-05-14] MEDS: ENOXAPARIN 40 MG/0.4 ML INJ SUB-Q SCH (10:11)
[2019-05-14] MEDS ORDERED: HALOPERIDOL LACTATE 5 MG/1 ML INJ IM PRN (11:03)
--- NOTE | 2019-05-14 13:03 | Discharge Summary ---
Providers - Providers Date of Admission: 05/11/19 04:00 Date of discharge: 05/14/19 Attending physician: DOUGLAS TREVINO 05/11/19 05:35 psychiatry consult [Consult to Mental Health] [CONS] Routine Reason For Exam: ams 05/11/19 16:50 Consult to Physician [CONS] Routine Comment: Consulting Provider: GERMAN HIDALGO Physician Instructions: Reason For Exam: Catatonic state Primary care physician: [employer]PER[employer]OR Hospitalization Condition: Stable Hospital course: Patient is 48 yo man with a history of Schizophrenia and substance abuse who initially was brought to [facility] on 05/05/2019. The patient was given ammonia which made him more alert, he subsequently became agitated and then was given Geodon. His urine was positive for marijuana, amphetamine. The patient was seen by psych and given clearance for discharge home. Then patient had change in mental status and ED physician asked for admission after 4 days in the ED. Patient was minimally responsive but he is protecting his airway. IV Ativan was given in the emergency room, Narcan and ammonia without any improvement in his mental status. Old chart was reviewed, the patient was here in 2018 for similar presentation. I spoke with mother at bedside on Wednesday05/12/2019, she reports that his mental status is the same as the his catatonia. patient's had 2 or 3rd catatonic state which unusually last about 2 weeks. Patient has extensively Schizophrenia history and being noncompliant with medications. Mother says that this is his typical catatonic state and usually Ativan wakes him up. D/W psych, will start IV ativan regimen. Mother also says that he gets like this when he doesn't take his medications. He has extensive schizophrenia history, there are camera in his home to monitor him. He is typically mental ok when he is on his psych medications. Mother was absolutely right, patient woke up with IV ativan. He is responding, he is awake, asking for coffee and when I left the room he threw up the "peace sign". When respiratory therapy later went to check on him he was not responding to her. This patient has quite a bit of mental health issues and needs inpatient psych stabilization. I reached out to Mental health to re-evaluate and they agreed. I placed on 1013, because he lunges at myself and nurse Ba out of anger. Acute toxic encephalopathy probably related to Methamphetamine Hypoglycemia: not eating, treat with iv dextrose, start IVF with dextrose Methampetamine toxicity; supportive care, counseling to be done once awake Leukocytosis, neg UA for UTI, negative cxr for pneumonia. most likely reactive. 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: treating with around the clock Ativan full code Dvt ppx sq lovenox Disposition: [facility]-psych unit Disposition: [id number] HOSP/PSY UNIT Time spent for discharge: 35 minutes Core Measure Documentation - Palliative Care Palliative Care/ Comfort Measures: Not Applicable - Core Measures Any of the following diagnoses?: none - VTE Discharge Requirements Deep Vein Thrombosis/Pulmonary Embolism Present on Admission: No Has pt received <5 days of overlap therapy or INR<2.0: No Anticoagulant overlap therapy prescribed at discharge: No Contraindication No Overlap Therapy order at DC: Not Indicated Exam - Physical Exam Narrative exam: Gen: wdwn, during my exam he was snoring, then stop, when I examined his eyes, he flinched, then the move his legs witnessed by nursing HEENT: NCAT, EOMI, pupils reactive but pinpoint Neck: supple, no adenopathy, no thyromegaly, no JVD CVS/Heart: RRR, normal S1S2, pulses present bilaterally Chest/Lungs: CTA B, Symmetrical chest expansion, good air entry bilaterally GI/Abdomen: soft, NTND, good bowel sounds, no guarding or rebound /Bladder: no suprapubic tenderness, no CVA or paraspinal tenderness Extermity/Skin: no c/c/e, no obvious rash MSK: +bilateral leg spontaneous movement Neuro: CN 2-12 grossly intact, noncooperative Psych: catatonic - Constitutional Vitals: Temp Pulse Resp BP Pulse Ox 97.9 F 94 H 18 115/78 99 05/14/19 05:50 05/14/19 05:48 05/14/19 05:48 05/14/19 05:48 05/14/19 05:48 Plan Activity: fall precautions Diet: regular Follow up with: PRIMARY CARE, [Primary Care Provider] - 7 Days Prescriptions: Haloperidol Lactate 10 mg IM Q6H PRN #1 syringe PRN Reason: Agitation
== END 2019-05-14 16:28 | DRG 917 ==
LOC: ED 20:01 → EEVIPCON 20:01 → 4A 05-11 04:00
PROVIDERS: ADMIT Internal Medicine; ATTEND Internal Medicine
DX: T43.621A Poisoning by amphetamines, accidental (unintentional), initial encounter (principal); G92 Toxic encephalopathy; E87.2 Acidosis; F20.9 Schizophrenia, unspecified; E16.2 Hypoglycemia, unspecified; D72.829 Elevated white blood cell count, unspecified; F17.210 Nicotine dependence, cigarettes, uncomplicated; F14.90 Cocaine use, unspecified, uncomplicated; F12.90 Cannabis use, unspecified, uncomplicated; E86.0 Dehydration; F19.94 Other psychoactive substance use, unspecified with psychoactive substance-induced mood disorder; Z71.6 Tobacco abuse counseling; Z91.14 Patient's other noncompliance with medication regimen; Y92.89 Other specified places as the place of occurrence of the external cause
CPT/HCPCS: 36415; 70450; 71045; 80048; 80053; 80307; 80320; 81001; 82140; 82550; 82805; 82962; 85025; 85027; 93005; 93010; 99292; G0378; G0480; J1630; J1650; J2060; J2310; J2405; J3480; J3486; J7030